=== PATIENT | male | born 1995 | race Two or more races ===

== ENCOUNTER 2020-11-11 01:20 | Inpatient (IN) | payer MEDICAID, OTHER ==
[~2020-11-11] VITALS: Ht 188 cm; Wt 162.4 kg
--- NOTE | 2020-11-11 01:35 | NUR ---
PT [facility] AND [employer]. MEDICAL CLEARANCE FOR BOOKING. POSSIBE INGESTION OF UNKNOWN SUBSTANCE. TWICHING AND JERKING UPON ARRIVAL. PT ALERT AND ORIENTED X3. BROUGHT IN ON A STRETCHER BUT AMBULATORY.
--- NOTE | 2020-11-11 01:55 | NUR ---
BLOOD TAKEN AND SENT TO LAB.
--- NOTE | 2020-11-11 01:59 | NUR ---
URINE COLLECTED AND SENT TO LAB.
--- NOTE | 2020-11-11 02:00 | NUR ---
PT WENT TO CT.
--- NOTE | 2020-11-11 02:15 | NUR ---
RETURNED FROM CT
[2020-11-11 02:45] LABS: BASOPHILS # (AUTO) 0.2 K/uL (0.0-0.2); BASOPHILS % (AUTO) 1.1 % (0.0-2.0); EOSINOPHILS % (AUTO) 0.1 % (0.0-6.0); HEMATOCRIT 44 % (39-51); HEMOGLOBIN 14.8 g/dL (13.5-17.5); LYMPHOCYTES # (AUTO) 3.6 K/uL (0.8-4.8); LYMPHOCYTES % (AUTO) 25.1 % (20.0-44.0); MEAN CORPUSCULAR HGB CONC 34 g/dl (31.0-36.0); MEAN CORPUSCULAR VOLUME 83 fL (80-96); MONOCYTES # (AUTO) 1.3 K/uL (0.1-1.30); MONOCYTES % (AUTO) 8.9 % (2.0-12.0); NEUTROPHILS # (AUTO) 9.4 K/uL (1.8-8.9); NEUTROPHILS % (AUTO) 64.8 % (43.0-81.0); PLATELET COUNT (AUTO) 331 K/uL (150-450); RED BLOOD CELL COUNT(AUTO) 5.28 MIL/uL (4.5-6.0); WHITE BLOOD COUNT (AUTO) 14.5 K/uL (4.3-11.0)
[2020-11-11 02:53] LABS: CALCIUM, SERUM 9.8 mg/dL (8.5-10.1); CARBON DIOXIDE 27 mmol/L (21-32); CHLORIDE 105 mmol/L (98-107); CREATININE 1.7 mg/dL (0.6-1.3); GLUCOSE 124 mg/dL (74-106); POTASSIUM 3.5 mmol/L (3.5-5.1); SODIUM SERUM 144 mmol/L (136-145); UREA NITROGEN, BLOOD 15 mg/dL (7-18)
[2020-11-11 02:54] LABS: MAGNESIUM 2.3 mg/dL (1.8-2.4)
[2020-11-11 02:58] LABS: CREATINE KINASE, TOTAL 538 U/L (39-308)
[2020-11-11 03:00] LABS: ALANINE AMINOTRANSFERASE 33 U/L (12-78); ALBUMIN 4.3 g/dL (3.4-5.0); ALCOHOL, BLOOD < 3 mg/dL (0-0); ALKALINE PHOSPHATASE 80 U/L (46-116); ASPARTATE AMINOTRANSFERASE 25 U/L (15-37); BILIRUBIN,DIRECT 0.3 mg/dL (0.0-0.2); BILIRUBIN,TOTAL 1.1 mg/dL (0.2-1.0); TOTAL PROTEIN, SERUM 8.6 g/dL (6.4-8.2)
[2020-11-11] MEDS ORDERED: MIDAZOLAM HCL 2 MG/2ML VIAL IV ONE ×2 (03:00→03:30)
[2020-11-11] MEDS ORDERED: MIDAZOLAM HCL 5 MG/5ML VIAL ONE (03:03)
--- NOTE | 2020-11-11 03:10 | NUR ---
Melvin ortez in [facility] - 11/11/20 at 0447 by JAMIR urine collected and sent to lab.
--- NOTE | 2020-11-11 03:17 | NUR ---
Melvin ortez in [facility] - 11/11/20 at 0447 by JAMIR patient going to ct
[2020-11-11 03:30] LABS: BILIRUBIN,URINE SMALL (NEGATIVE); COLOR,URINE AMBER (YELLOW); LEUKOCYTE ESTERASE ,URINE Negative (NEGATIVE); NITRITE, URINE Negative (NEGATIVE); PH,URINE 5.5 (5.0-8.0); PROTEIN,URINE 100 mg/dl (NEGATIVE); UGLUCOSE Negative (NEGATIVE); UROBILINOGEN,URINE 0.2 EU/dL (0.2)
[2020-11-11] MEDS ORDERED: VANCOMYCIN 1 GM in IV D5W 250 ML IV ONE (03:30)
[2020-11-11] MEDS ORDERED: IV NS 0.9% 1,000 ML BAG IV ONE (03:30)
[2020-11-11] MEDS ORDERED: PIPERACILLIN /TAZOBACTAM 3.375 G in IV D5W 50 ML IV ONE (03:30)
[2020-11-11] MEDS ORDERED: VANCOMYCIN 1 GM VIAL ONE (03:46)
[2020-11-11] MEDS ORDERED: PIPERACILLIN /TAZOBACTAM 3.375 G VIAL IV ONE ×2 (03:46→05:17)
[2020-11-11 04:04] LABS: BACTERIA,URINE Few /HPF (None Seen); RBC,URINE 81-100 /HPF (0-2); SQUAMOUS EPITHELIAL CELL,UR Few /HPF (None Seen)
[2020-11-11] MEDS ORDERED: MORPHINE SULFATE INJ 2 MG/ML DISP.SYRIN IV PRN (04:30)
[2020-11-11] MEDS ORDERED: OLANZAPINE 10 MG VIAL IM ONE ×2 (04:30→04:51)
[2020-11-11] MEDS ORDERED: ONDANSETRON HCL/PF 4 MG/2 ML VIAL IVP PRN (04:30)
[2020-11-11] MEDS ORDERED: MAGNESIUM HYDROXIDE 30 ML UDC PO PRN (04:30)
[2020-11-11] MEDS ORDERED: LORAZEPAM 1 MG TABLET PO PRN (04:30)
[2020-11-11] MEDS ORDERED: TEMAZEPAM 15 MG CAPSULE PO PRN (04:30)
[2020-11-11] MEDS ORDERED: Z GUARD REMEDY 2 OZ OINT TP PRN (04:30)
[2020-11-11] MEDS ORDERED: HYDROCODONE/APAP 5/325MG TABLET PO PRN (04:30)
[2020-11-11] MEDS ORDERED: MAG HYDROX/AL HYDROX/SIMETH 30 ML UDC PO PRN (04:30)
[2020-11-11] MEDS ORDERED: ACETAMINOPHEN 325 MG TABLET PO PRN (04:30)
[2020-11-11] MEDS ORDERED: PIPERACILLIN /TAZOBACTAM 3.375 G in IV D5W 50 ML IV SCH (05:00)
--- NOTE | 2020-11-11 05:01 | NUR ---
CALLED CRYSTALIZER TENDER FOR TELE BED
--- NOTE | 2020-11-11 05:28 | NUR ---
REPORT GIVEN TO EBONI WEAVER
--- NOTE | 2020-11-11 05:30 | NUR ---
PT BEING TRANSFERRED TO 322-2 PER ACLS.
[2020-11-11 05:35] VITALS: BP 150/70
--- NOTE | 2020-11-11 05:35 | NUR ---
LEGISLATIVE ANALYSTDEHAIRING MACHINE TENDER NOTES RECEIVED PATIENT AT THIS TIME ACCOMPANIED BY [employer]. BROUGHT IN VIA GURNEY. PATIENT VERY RESTLESS AT THIS TIME AND UNABLE TO GET MORE INFORMATION. V/S FOLLOWS: BP- 150/70, HR-94, RR-18, T- 98.6, AND SATURATION 98% ON ROOM AIR. WT- 358.5 LBS. PATIENT HANDCUFFED RIGHT NOW, WITH [employer] ON BED SIDE. WILL CONT. TO MONITOR PATIENT AT THE MEAN TIME.
--- NOTE | 2020-11-11 05:38 | NUR ---
agency service representative notes Spoke with [facility] to verify pt's meds. Primary nurse EBONI Wilson is aware and informed.
[2020-11-11 06:10] VITALS: BP 150/70
[2020-11-11] MEDS: IV NS 0.9% 1,000 ML IV PRN ×2 (06:38→15:11)
--- NOTE | 2020-11-11 06:44 | NUR ---
ELECTRIFICATION ADVISER NOTES PATIENT ADAMANTLY REFUSED PICTURE OF HIS L. LEG -- SCRATCHES/ABRASION.
--- NOTE | 2020-11-11 07:06 | NUR ---
COMBINED RAIL OPERATOR NOTE TELE MONITOR OFF RIGHT NOW. PATIENT REFUSING TO PUT ON. PATIENT CAN BE HOSTILE. [employer] AT BEDSIDE. WILL ENDORSE TO [facility] FOR CONTINUITY OF CARE.
--- NOTE | 2020-11-11 07:17 | NUR ---
CERTIFIED MARINE MECHANIC OPENING NOTES RECEIVED PATIENT IN BED, IN POLICE CUSTODY. PATIENT A/O X2. PATIENT IS BREATHING EVENLY AND NONLABORED ON ROOM AIR. NO SIGNS OF DISTRESS. PATIENT DOES NOT COMPLAIN OF PAIN AT THIS TIME. PATIENT IS REFUSING TELE MONITORING AT THIS TIME. PATIENT HAS IV ACCESS TO RAC # 18 GAUGE RUNNING NS @ 125ML/HR. SAFETY MEASURES ARE IN PLACE BED LOW LOCKED AND CALL LIGHT WITHIN REACH. WILL CONTINUE TO MONITOR
[2020-11-11] MEDS: PANTOPRAZOLE 40 MG TABLET.DR PO SCH ×2 (07:30→07:34)
--- NOTE | 2020-11-11 07:40 | NUR ---
RN NOTE PATIENT REFUSED PANTOPRAZOLE, EXPLAINED RISK AND BENEFITS X2. PATIENT STILL REFUSED. MD AWARE, WILL CONTINUE TO MONITOR
[2020-11-11 08:41] VITALS: BP 148/79
[2020-11-11] MEDS ORDERED: ZOSYN IVPB 3.375 G in IV D5W 50ml IV SCH (12:00)
--- NOTE | 2020-11-11 15:59 | NUR ---
RN NOTE PATIENT REFUSED VITAL SIGNS, EXPLAINED RISK AND BENEFITS, MD AWARE OF CONTINUOUS REFUSAL.WILL CONTINUE TO MONITOR
[2020-11-11] MEDS ORDERED: VANCOMYCIN 1.25 GM in IV D5W 250 ML IV SCH (16:00)
--- NOTE | 2020-11-11 18:33 | NUR ---
MS RN CLOSING NOTES PATIENT IN BED, IN POLICE CUSTODY. PATIENT A/O X2. PATIENT IS BREATHING EVENLY AND NONLABORED ON ROOM AIR. NO SIGNS OF DISTRESS. PATIENT DOES NOT COMPLAIN OF PAIN AT THIS TIME. PATIENT REFUSED CARE THROUGHOUT SHIFT, PATIENT IS COMBATIVE AT TIMES, MD AWARE. IV ACCESS TO LAC IS NOTED BLEEDING AND DISLODGED. PATIENT REFUSED TO REMOVE IT. PATIENT HAS IV ACCESS TO RAC # 18 GAUGE RUNNING NS @ 125ML/HR. SAFETY MEASURES ARE IN PLACE BED LOW LOCKED AND CALL LIGHT WITHIN REACH. WILL ENDORSE TO ONCOMING SHIFT
--- NOTE | 2020-11-11 20:08 | NUR ---
MS RN OPENING NOTES PATIENT LAST SEEN AWAKE SITTING ON HIS BED. PATIENT'S IN POLICE CUSTODY. PATIENT IS A/O X2. PATIENT'S STABLE ON ROOM AIR. PATIENT HAS AN IV ACCESS TO RAC GAUGE #18 WHICH IS RUNNING NS. PATIENT'S IN NO ACUTE DISTRESS AT THIS TIME. SAFETY MEASURES ARE IN PLACE: BED LOCKED, BED ALARM ON, SIDE RAILS UPX3, AND CALL LIGHT WITHIN REACH. WILL CONTINUE TO MONITOR THE PATIENT.
[2020-11-11 21:03] VITALS: BP 103/77
[2020-11-11] MEDS ORDERED: LORAZEPAM INJ 2 MG/ML VIAL IV PRN (21:30)
[2020-11-12] MEDS ORDERED: diphenhydrAMINE HCL 50 MG/ML VIAL IM/IV ONE (00:30)
[2020-11-12] MEDS ORDERED: LORAZEPAM INJ 2 MG/ML VIAL IM/IV PRN (03:30)
[2020-11-12] MEDS ORDERED: HALOPERIDOL LACTATE INJ 5 MG/ML VIAL IM ONE (03:46)
[2020-11-12 06:26] LABS: BASOPHILS # (AUTO) 0.1 K/uL (0.0-0.2); EOSINOPHILS % (AUTO) 1.6 % (0.0-6.0); HEMATOCRIT 40 % (39-51); HEMOGLOBIN 13.5 g/dL (13.5-17.5); LYMPHOCYTES # (AUTO) 2.7 K/uL (0.8-4.8); LYMPHOCYTES % (AUTO) 28.6 % (20.0-44.0); MEAN CORPUSCULAR HGB CONC 34 g/dl (31.0-36.0); MEAN CORPUSCULAR VOLUME 84 fL (80-96); MONOCYTES # (AUTO) 0.8 K/uL (0.1-1.30); NEUTROPHILS # (AUTO) 5.8 K/uL (1.8-8.9); NEUTROPHILS % (AUTO) 60.8 % (43.0-81.0); PLATELET COUNT (AUTO) 244 K/uL (150-450); WHITE BLOOD COUNT (AUTO) 9.6 K/uL (4.3-11.0)
[2020-11-12 06:56] LABS: ALBUMIN 3.5 g/dL (3.4-5.0); BILIRUBIN,TOTAL 1.2 mg/dL (0.2-1.0); CALCIUM, SERUM 8.4 mg/dL (8.5-10.1); CREATININE 1.2 mg/dL (0.6-1.3); MAGNESIUM 2.2 mg/dL (1.8-2.4); PHOSPHORUS 4.7 mg/dL (2.5-4.9); TOTAL PROTEIN, SERUM 7.3 g/dL (6.4-8.2)
--- NOTE | 2020-11-12 07:46 | NUR ---
MS RN OPENING NOTES RECEIVED PATIENT IN BED AWAKE AND IN POLICE CUSTODY. A/O X1-2. VERBALLY RESPONSIVE AND RESTLESS. DENIES PAIN AT THIS TIME. PATIENT IS BREATHING EVENLY AND NONLABORED ON ROOM AIR. PATIENT HAS NO IV ACCESS, REPORTED FROM [employer]BILE PLANT OPERATORS NURSE THAT PT IS UNCOOPERATIVE AND DIDN'T WANT TO HAVE IV ACCESS INSERTED. SAFETY MEASURES ARE IN PLACE: BED IN LOWEST LOCKED POSITION AND SR UP X2. CALL LIGHT WITHIN REACH. WILL CONTINUE TO MONITOR
[2020-11-12 08:00] VITALS: BP 116/63
[2020-11-12] MEDS: PANTOPRAZOLE 40 MG TABLET.DR PO SCH (09:20)
[2020-11-12] MEDS: POTASSIUM CHLORIDE 20 MEQ TAB.PRT.SR PO SCH ×3 (10:48→12:19)
--- NOTE | 2020-11-12 11:14 | NUR ---
RN NOTES PT INSERTED IV NEW IV ACCESS ON LFA G#20,, IVF OF NS @ 125ML/HR RESUMED. WILL CONTINUE TO MONITOR.
[2020-11-12] MEDS: IV NS 0.9% 1,000 ML IV PRN (15:32)
[2020-11-12 16:00] VITALS: BP 139/75
--- NOTE | 2020-11-12 18:45 | NUR ---
MS RN CLOSING NOTES PATIENT IN BED AWAKE AT THIS TIME WITH TWO POLICE OFFICERS AT BEDSIDE. A/O X2-3. VERBALLY RESPONSIVE. RESTLESS ON AND OFF. PT WITH HANDCUFFS TO BOTH HANDS CONNECTED TO BEDSIDE RAILINGS. ON ROOM AIR, BREATHING EVENLY AND UNLABORED, NO SOB NOTED DURING SHIFT. IV ACCESS ON LFA G#20 INTACT AND PATENT WITH IVF OF NS @ 125 ML/HR INFUSING WELL, NO S/S OF INFILTRATION NOTED. ALL NEEDS AND CARE PROVIDED WELL. SAFETY MEASURES IN PLACE: CALL LIGHT WITHIN REACH, SIDE RAILS UP X 2, BED LOCKED IN LOW POSITION, BED ALARM ON AND HOB ELEVATED. WILL ENDORSE AMAIRANI TO SPORTS MEDICINE PHYSICIAN NURSE.
--- NOTE | 2020-11-12 19:39 | NUR ---
MS LYN OPENING NOTES RECEIVED PATIENT IN BED, AWAKE WITH ONE MECHANICAL MAINTENANCE AT BEDSIDE. A/O X2-3. PT WITH HANDCUFFS TO BOTH HANDS CONNECTED TO BEDSIDE RAILINGS. ON ROOM AIR AND TOLERATING WELL. NO SOB NOTED. NO S/SX OF RESPIRATORY DISTRESS NOTED. IV ACCESS ON LFA #20G RUNNING NS @ 125 ML/HR. SAFETY MEASURES IN PLACE: BED IN LOWEST, LOCKED POSITION, BRAKES ON, SIDERAILS UPx2. CALL LIGHT AND TABLE WITHIN REACH. WILL CONTINUE TO MONITOR. Addendum: 11/13/20 at 0639 by GILLIAN PRICE RN 2 POLICE OFFICERS WERE AT BEDSIDE.
[2020-11-12 20:00] VITALS: BP 160/80
[2020-11-13] MEDS: IV NS 0.9% 1,000 ML IV PRN ×2 (01:09→09:32)
--- NOTE | 2020-11-13 06:16 | NUR ---
LAB PERSONNEL ATTEMPTED TO DRAW BLOOD FROM PATIENT BUT PATIENT REFUSED.
--- NOTE | 2020-11-13 06:43 | NUR ---
MS RN CLOSING NOTES PATIENT IN BED, ASLEEP, AWAKENS TO VERBAL STIMULI WITH TWO POLICE OFFICERS AT BEDSIDE. A/O X2-3. PT WITH HANDCUFFS TO BOTH HANDS CONNECTED TO BEDSIDE RAILINGS. ON ROOM AIR AND TOLERATING WELL. NO SOB NOTED. NO S/SX OF RESPIRATORY DISTRESS NOTED. IV ACCESS ON LFA #20G RUNNING NS @ 125 ML/HR. ALL NEEDS MET. PT KEPT CLEAN AND DRY. SAFETY MEASURES IN PLACE: BED IN LOWEST, LOCKED POSITION, BRAKES ON, SIDERAILS UPx2. CALL LIGHT AND TABLE WITHIN REACH. WILL ENDORSE TO ONCOMING SHIFT.
--- NOTE | 2020-11-13 07:22 | NUR ---
MS RN OPENING NOTES RECEIVED PATIENT IN BED AWAKE AND IN POLICE CUSTODY. A/O X2. ABLE TO MAKE NEEDS KNOWN, DENIES PAIN AT THIS TIME. PT ON HANDCUFF TO BOTH ARMS CONNECTED TO BED RAILINGS. ON ROOM AIR, BREATHING EVENLY AND NON-LABORED. IV ACCESS ON LFA G#20 INTACT WITH IVF OF NS @ 125ML/HR, NO S/S OF INFILTRATION NOTED. SAFETY MEASURES ARE IN PLACE: BED IN LOWEST LOCKED POSITION AND SR UP X2. CALL LIGHT WITHIN REACH. WILL CONTINUE TO MONITOR PT ACCORDINGLY.
[2020-11-13] MEDS: PANTOPRAZOLE 40 MG TABLET.DR PO SCH (07:30)
[2020-11-13 08:49] VITALS: BP 120/79
[2020-11-13 10:38] LABS: CALCIUM, SERUM 8.2 mg/dL (8.5-10.1); POTASSIUM 3.4 mmol/L (3.5-5.1)
--- NOTE | 2020-11-13 15:22 | NUR ---
RN DISCHARGED NOTES PATIENT DISCHARGED IN CUSTODY OF POLICE, IN STABLE CONDITION. A/O X3. ABLE TO MAKE NEEDS KNOWN. V/S TAKEN, STABLE AND RECORDED. ALL BELONGINGS ACCOUNTED FOR. DENIES PAIN OR ANY DISCOMFORTS. IV ACCESS ON LFA# 20G REMOVED WITH NO ACTIVE BLEEDING NOTED, DRY PRESSURE DRESSING APPLIED TO SITE. HEALTH TEACHINGS, DISCHARGE INSTRUCTIONS GIVEN TO PT AND TRANSMISSION REBUILDER, BOTH VERBALIZED UNDERSTANDING. EXIT FOLDER HANDED TO TRANSMISSION REBUILDER. PT LEFT UNIT AT 1455 WITH HANDCUFFS, AMBULATORY ACCOMPANIED BY 2 POLICE OFFICERS. CHARGE NURSE AWARE OF DISCHARGE.
== END 2020-11-13 15:00 | DRG 812 ==
LOC: ER 01:24 → TELE 05:03 → MED 09:16
DX: T43.621A Poisoning by amphetamines, accidental (unintentional), initial encounter (principal); N17.0 Acute kidney failure with tubular necrosis; G92.8 Other toxic encephalopathy; M62.82 Rhabdomyolysis; E87.2 Acidosis; E86.0 Dehydration; F15.10 Other stimulant abuse, uncomplicated; Z20.822 Contact with and (suspected) exposure to COVID-19; E87.6 Hypokalemia; E66.01 Morbid (severe) obesity due to excess calories; Z68.42 Body mass index [BMI] 45.0-49.9, adult; Y92.89 Other specified places as the place of occurrence of the external cause
CPT/HCPCS: 36415; 71045-TC; 71250-TC; 80048-TC; 80053-TC; 80076-TC; 81001; 82550-TC; 82553; 82962-TC; 83605-TC; 83735-TC; 84100-TC; 84484-TC; 85025-TC; 85378-TC; 85730-TC; 87040-TC; 87081-TC; 87086-TC; C9803; G0378; G0480; J1200; J1630; J2060; J2250; J2543; J3370; J3490; J7030; J7060